=== PATIENT | male | born 1955 | race Caucasian/White ===

== ENCOUNTER 2025-01-30 06:10 | Day surgery (SDC) | payer BC, SELFPAY ==
[2025-01-30] VITALS (9 sets, daily range): BP systolic 107–140; BP diastolic 50–71; BMI 31.0
[2025-01-30] MEDS: NSS 278 ML IV (06:50)
[2025-01-30] MEDS: LOW STRENGTH ASPIRIN 324 MG PO (07:07)
--- NOTE | 2025-01-30 07:33 | ITS.CL.CATH ---
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
Cardiac Catheterization
Procedure Report:
LEFT HEART CATHETERIZATION
Date of Procedure: January 30, 2025
Procedures performed:
1: Coronary angiography
2: Left ventricular hemodynamic assessment
Primary Care Physician: Talia Leo PA-C
Primary [place] Support Worker: Dr. Naveen Medrano
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
intervention. He underwent a treadmill stress test and was unable to walk 3 minutes without severe dyspnea.
ACCESS: The patient was prepped and draped in usual sterile fashion. A 6 Amharic sheath was placed in the right radial artery using the Seldinger over the wire technique.
HEMODYNAMIC FINDINGS (mmHg):
LV(s/d,EDP): 186/9, 29
Ao(s/d,m): 137/61, 75
Mean aortic valve gradient on pullback: 50 mmHg
ANGIOGRAPHIC FINDINGS:
Single-plane Left Ventriculography in [place] Projection: Not done. Echocardiogram performed on December 26 showed normal LV systolic function with severe aortic valvular stenosis with a mean gradient of 40 mmHg and a valve area by the continuity equation
0.85 cm�.
Coronary Angiography:
Dominance: Right
Left Main: Normal
Left Anterior Descending: The left anterior descending artery is a large-caliber vessel that gives rise to 2 large diagonal branches. These vessels are widely patent with only mild luminal irregularities.
Left Circumflex: The left circumflex is a relatively small caliber nondominant system that gives rise to 2 major obtuse marginal branches which are widely patent with no focal obstructive disease.
Right Coronary: The right coronary artery is a medium caliber dominant vessel that gives rise to a medium caliber posterior descending artery and larger posterior left ventricular branch. These vessels have mild luminal regularities with normal
distal flow.
Fluoroscopy Time (min): 6.8
Radiation Dose (mGy): 358
DAP (Gy.cm2): 24
Closure device: None. A TR band was applied for hemostasis at the right wrist.
Complications: None.
ASSESSMENT:
1: Very mild nonobstructive coronary artery disease.
2: Severe aortic valvular stenosis.
CONCLUSIONS and RECOMMENDATIONS:
1: Proceed with TAVR evaluation.
2: Smoking cessation remains most important intervention to reduce his morbidity and mortality from vascular events. Unfortunately he is not interested in quitting.
Lanette Pickett M.D.
Copy to: Talia Leo PA-C
[2025-01-30] MEDS: NSS 1000 IV (08:10)
--- NOTE | 2025-01-30 11:01 | CONSULT.STRU ---
Consultation
-
Date/Time Consultation Requested: 01/30/2025 09
Date/Time Consultation Performed: 01/30/2025929
Requesting Provider: Dr. Popeye Pickett
Performing Provider: BACILIO Espitia
Reason for Consultation: Aortic stenosis/ TAVR evaluation
Patient History
Physicians
Family Physician: Talia Leo
Outpatient Property Maintenance Technician: Naveen Medrano
Primary Property Maintenance Technician: Naveen Medrano
History of Present Illness
Uday Shook is a pleasant 69-year-old man with hyperlipidemia, severe aortic stenosis and mild insufficiency, moderate mitral stenosis, elevated PSA, venous insufficiency, recurrent DVT despite therapeutic INR on warfarin, now on lifelong Xarelto
who presents for cardiac cath today as part of his TAVR evaluation. Most recent echocardiogram confirmed severe aortic stenosis by gradients 64.0/40.1 and SAM 0.85. He does have recently worsened fatigue, but was not complaining of classic symptoms
so Dr. Medrano ordered a treadmill stress test and he was only able to complete 2 minutes on the Nicolas protocol before discontinuing due to severe dyspnea. Today he denies HADDAD and only complains about fatigue. He denies chest pain, palpitations,
orthopnea, PND. He denies claudication symptoms. 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
Reviewed the pathophysiology of aortic stenosis with the patient, his , his daughter and granddaughter. Explained the treatment options of SAVR and TAVR. Explained the TAVR evaluation process including follow up BMP, CT TAVR scan, CT surgery
consult and Heart Team discussion. Provided with script for BMP next week, script and appointment for CT TAVR, Consult appointment with Dr. Rosario and a copy of the TAVR education booklet with contact information. Allowed for and answered questions.
Past Medical History
Past Medical History: Hypercholesterolemia, Valvular Disease (severe , mild AI, mild MR, Mild to moderate mitral stenosis) and Other (tobacco abuse, h/o recurrent DVT, last one 5 years ago. 3 LE DVT and 1 PE)
Past Surgical History
Past Surgical History: Appendectomy
Dental History
Does not receive regular dental care. Aware he will need dental clearance. Will go to [facility].
Family History
Mother: at Age
Father: at Age
Social History
Alcohol: Occasional
Drug: None
Tobacco: Smoker (current 1/2 ppd for past 3 years but prior 1 PPD since age 13)
Personal:
Living: With Spouse
Employment: Employed (works in a [employer] store)
Allergies
Allergy/AdvReac Type Severity Reaction Status Date / Time
erythromycin base Allergy Unknown Unknown Verified 01/30/25 06:30
Home Medications
�Medication �Instructions �Recorded �Confirmed �Type
rivaroxaban 20 mg tablet (Xarelto) 20 mg PO DAILY 01/30/25 01/30/25 History
rosuvastatin 10 mg tablet 10 mg PO DAILY 01/30/25 01/30/25 History
vitamin B complex 1 tab PO DAILY 01/30/25 01/30/25 History
STS%
STS %: 1.24%
Review of Systems
-
History Source: Patient
General: Reports Fatigue
HEENT: Reports No Symptoms
Respiratory: Reports Cough (productive); Denies SOB, HADDAD or PND
Cardiac: Reports No Symptoms; Denies Chest Pain, Palpitations or Edema
Abdomen/GI: Reports No Symptoms; Denies Abdominal Pain or Reflux
: Reports No Symptoms
Musculoskeletal: Reports No Symptoms
Skin: Reports No Symptoms
Neurological: Reports No Symptoms; Denies CVA or TIA
Vascular: Reports No Symptoms; Denies Claudication
Physical Exam
Vital Signs
Temp 97.9 F 01/30/25 07:03
Pulse 60 01/30/25 09:45
Resp Rate 15 01/30/25 09:45
Blood pressure 124/50 01/30/25 09:36
Blood pressure extremity used: Left upper arm 01/30/25 08:06
Position: Lying 01/30/25 08:06
MAP (cuff-Peyton Monitor) 71 01/30/25 09:36
SaO2 96 01/30/25 09:51
Oxygen Mode of Delivery Room air 01/30/25 09:51
Can the patient verbally communicate their pain? Yes 01/30/25 09:51
Actual Weight 92.5 kg 01/30/25 06:51
Body Mass Index (BMI) 31.0 01/30/25 06:51
Labs
01/22/2025 GVH:
H/H: 15.7/48.0
Platelets: [id number]
WBC: 9.0
BUN/Creat: 30/09.37
GFR: 55
Diagnostic Studies
Cardiac Catheterization 01/30/2025:
Coronary Angiography:
Dominance: Right
Left Main: Normal
Left Anterior Descending: The left anterior descending artery is a large-caliber vessel that gives rise to 2 large diagonal branches. These vessels are widely patent with only mild luminal irregularities.
Left Circumflex: The left circumflex is a relatively small caliber nondominant system that gives rise to 2 major obtuse marginal branches which are widely patent with no focal obstructive disease.
Right Coronary: The right coronary artery is a medium caliber dominant vessel that gives rise to a medium caliber posterior descending artery and larger posterior left ventricular branch. These vessels have mild luminal regularities with normal
distal flow.
Fluoroscopy Time (min): 6.8
Radiation Dose (mGy): 358
DAP (Gy.cm2): 24
Closure device: None. A TR band was applied for hemostasis at the right wrist.
Complications: None.
ASSESSMENT:
1: Very mild nonobstructive coronary artery disease.
2: Severe aortic valvular stenosis.
CONCLUSIONS and RECOMMENDATIONS:
1: Proceed with TAVR evaluation.
2: Smoking cessation remains most important intervention to reduce his morbidity and mortality from vascular events. Unfortunately he is not interested in quitting.
Echocardiogram 12/26/2024 ([facility]):
SUMMARY
1. Normal Left ventricular ejection fraction, by visual estimation, is 60 to 65% with normal regional function.
2. Indeterminate LV diastolic function.
3. Normal right ventricular size and systolic function.
4. Normal left atrium by volume index (29.5 mL/m2) and normal right atrium by area (12.7 cm2).
5. Aortic valve is thickened and calcified and tricuspid. Severe aortic valve stenosis. Mild aortic regurgitation. AoV velocity of 4.00 m/s; Peak aortic valve gradient = 64.0 mmHg; Mean gradient = 40.1 mmHg; AoV Area by continuity equation = 0.85
cm2; AoV Dimensionless Index = 0.26.
6. There is thickening of the anterior leaflet of the mitral valve. Moderate mitral annular calcification. Normal MVA by PHT, mean gradient 4 mmHg .Mild mitral valve regurgitation is seen.
7. Right atrial pressure of (3 mmHg), the estimated right ventricular systolic pressure is normal at (29.7 mmHg).
8. Mild to moderate mitral valve stenosis with mean gradient of 4.5 mmHg.
9. Compared to a prior TTE study from 07/24/2024 Findings are similar. Aortic valve and mitral valve gradients are slightly lower.
Left Ventricle:
The left ventricular internal cavity size was normal. There is normal left ventricular systolic function. Indeterminate LV diastolic function. Left ventricular ejection fraction, by visual estimation, is 60 to 65%. No left ventricular hypertrophy.
Right Ventricle:
Normal right ventricular size, wall thickness, and systolic function. The tricuspid regurgitant velocity predicts an estimated right ventricular systolic pressure of 29.7 mmHg.
Left Atrium:
The left atrium is normal by volume index 29.5 mL/m2.
Right Atrium:
Right atrium is normal by area 12.7 cm2.
Inferior vena cava normal in size (<2.1 cm) + greater than 50% variably consistent with normal right atrial pressures (3 mmHg).
Interatrial Septum:
Interatrial and interventricular septa appear intact, with no obvious evidence of intracardiac shunting by spectral or color Doppler.
Aortic Valve:
The aortic valve is thickened and calcified and tricuspid. Doppler findings and restricted movement of the aortic valve cusps are consistent with severe aortic stenosis. The peak aortic valve gradient is 64.0 mmHg. The mean aortic valve gradient is
40.1 mmHg. The peak aortic velocity was obtained from the apical view. There is mild aortic regurgitation.
Mitral Valve:
There is moderate mitral annular calcification. There is thickening of the anterior leaflet of the mitral valve. The mean mitral valve gradient is 4.5 mmHg. The calculated mitral valve area is 3.61 cm�, using a pressure half-time of 61 msec. Mild
mitral valve regurgitation is seen. Mild to moderate mitral valve stenosis.
Tricuspid Valve:
The tricuspid regurgitant velocity is (2.58 m/s), and with an assumed right atrial pressure of (3 mmHg), the right ventricular systolic pressure is normal (29.7 mmHg). Structurally normal tricuspid valve, with normal leaflet excursion.
Pulmonary Valve:
The pulmonic valve is normal in structure with good excursion. There is trace pulmonary valve regurgitation.
Aorta:
The aortic root measures (2.98 cm/ BSA indexed 1.4 cm/m2), Aortic sinus (2.99 cm/ BSA indexed 1.4 cm/m2), Aortic ST junct (2.6 cm/ BSA indexed 1.2 cm/m2), and Asc Aorta (3.19 cm/ BSA indexed 1.5 cm/m2).
Pericardium:
There is no evidence of pericardial effusion.
Comparison To Previous Study:
Compared to a prior transthoracic study from 07/24/2024Findings are similar. Aortic valve and mitral valve gradients are slightly lower. Prior examinations are available and were reviewed for comparison purposes.
Exam
General: Well Developed, Well Nourished, No Apparent Distress and Comfortable
HEENT: Normocephalic, PERRLA and EOMI
Neck: Trachea Midline
Respiratory: Clear; Negative Wheezes, Crackles or Rhonchi
Cardiac: S1/S2, Regular Rhythm and Murmur (Grade II-II/ JUAN MANUEL)
GI: Soft, Non Tender, Non Distended and Normal Bowel Sounds
Rectal: Deferred by Provider
Skin: Warm and Dry
Neuro: AO x 3 and Nonfocal/Grossly Intact
Extremities: Pulses (+2 dp/pt pulses bilateral); Negative Lower Level Edema
Psych: Calm
Assessment / Plan
-
Procedure Type:�Isolated AVR
Perioperative Outcome Estimate %
Operative Mortality 1.24%
Morbidity & Mortality 8.68%
Stroke 0.904%
Renal Failure 1.11%
Reoperation 3.8%
Prolonged Ventilation 3.72%
Deep Sternal Wound Infection 0.07%
Long Hospital Stay (>14 days) 2.4%
Short Hospital Stay (<6 days)* 58.8%
Severe Aortic stenosis:
����������� Continue evaluation for aortic stenosis as outpatient
����������� BMP 02/05/2025
����������� CT TAVR scan 02/19/2025 at
����������� CT surgery consult with Dr. Rosario� 02/25/2025
����������� Dental Clearance � needs a dentist, will probably go to [facility]
����������� Heart team discussion at [facility]
Data Reviewed
-
EKG: Report Reviewed by me
Morning Show Newscast Producer: Report Reviewed by me, Discussed with Physician, Discussed with Patient and Discussed with Family
Echo: Report Reviewed by me, Discussed with Physician, Discussed with Patient and Discussed with Family
Labs: Labs Reviewed by me
Old Records: Reviewed (cardiology consult notes, stress test)
Total Time Spent with Patient (in minutes): 35
== END 2025-01-30 11:10 | disposition home or self-care (01) ==
LOC: CATH 06:10
PROVIDERS: ATTENDING PHYSICIAN Internal Medicine Interventional Cardiology; OTHER PHYSICIAN Internal Medicine; PRIMARYCARE PHYSICIAN Physician Assistant
DX: I25.10 Atherosclerotic heart disease of native coronary artery without angina pectoris (principal); I08.3 Combined rheumatic disorders of mitral, aortic and tricuspid valves; Z79.01 Long term (current) use of anticoagulants; Z86.718 Personal history of other venous thrombosis and embolism; E78.00 Pure hypercholesterolemia, unspecified; F17.210 Nicotine dependence, cigarettes, uncomplicated; Z88.1 Allergy status to other antibiotic agents; Z79.899 Other long term (current) drug therapy; Z90.49 Acquired absence of other specified parts of digestive tract
CPT/HCPCS: 93458; C1769; C1894; Q9967

== ENCOUNTER → 2025-02-19 09:23 | Outpatient (REF) | payer OTHER, SELFPAY | LOC: RAD 09:23 | PROVIDERS: ATTENDING PHYSICIAN Nurse Practitioner Adult Health; FAMILY PHYSICIAN Physician Assistant | DX: I35.0 Nonrheumatic aortic (valve) stenosis (principal) | CPT/HCPCS: 74174; 75572; Q9967 ==

== ENCOUNTER 2025-04-11 09:04 | Inpatient (IN) | payer OTHER, SELFPAY ==
--- NOTE | 2025-04-01 16:49 | HPS.HSE ---
Family Physician
-
Family Physician: Talia Leo
Chief Complaint
-
Fatigue
PreTAVR evaluation
History of Present Illness
Uday Shook is a pleasant 69-year-old man with hyperlipidemia, severe aortic stenosis and mild insufficiency, moderate mitral stenosis, elevated PSA, venous insufficiency, recurrent DVT despite therapeutic INR on warfarin, now on lifelong Xarelto..
Most recent echocardiogram confirmed severe aortic stenosis by gradients 64.0/40.1 and SAM 0.85. He does have recently worsened fatigue, but was not complaining of classic symptoms so Dr. Medrano ordered a treadmill stress test and he was only
able to complete 2 minutes on the Nicolas protocol before discontinuing due to severe dyspnea. Today he denies HADDAD and only complains about fatigue. He denies chest pain, palpitations, orthopnea, PND. He denies claudication symptoms. 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 Reviewed the pathophysiology of aortic stenosis with the patient.
Assessed patient in preadmission testing and confirmed medication list. Last dose Xarelto will by Tuesday (04/07), he will take 324 mg aspirin on Tuesday (04/08), 81 mg aspirin Tuesday (04/09) Tuesday (04/10) and (04/11). He will arrive to the
[facility] atrium at 0930. Reviewed the risks of the procedure as discussed in consult with Dr. Rosario including PPM, stroke, and vascular complications. Allowed for and answered questions to the best of my ability.
Medical History
Past Medical History
Past Medical History: Reports Valvular Disease (aortic stenosis, HLD, tobacco abuse, venous insufficiency, CKD2, PE, bilateral vericose veins, arthritis)
Past Surgical History: Reports Appendectomy
Social History
Tobacco: Smoker
Alcohol: Occasional
Drug: None
Personal:
Living: With Family
Employment: Employed
Family History
Family History: Cancer and Diabetes
Allergies / Home Medications
Allergies reflects when Allergies were last updated in [employer].
erythromycin
Home Medications with original date entered in [employer]
Rosuvastatin Calcium 10 MG Capsule Sprinkle 1 tablet Orally Once a day
Vitamin B Complex - Tablet as directed Orally
Xarelto(Rivaroxaban) 20 MG Tablet 1 tablet with food Orally Once a day
Allergy/Medication List:
erythromycin
Review of Systems
-
History Source: Patient
A 12 point ROS was completed and negative except as noted: Yes
Constitutional: Reports Fatigue
Respiratory: Reports Other (HADDAD)
Physical Exam
Physical Exam
General: Well Developed, Well Nourished, No Apparent Distress and Comfortable
HEENT: NormoCephalic
Respiratory: Clear
Cardiac: Murmur (III/ JUAN MANUEL)
Breast: Deferred by me
Rectal: Deferred by Provider
Genito-urinary: Deferred by me
Musculoskeletal: No Edema
Skin: Warm and Dry
Neuro: Awake, Alert, Oriented and AO x 3
Psych: Calm
Impression/Plan
-
IMPRESSION/PLAN:
Aortic stenosis
TF TAVR planned for 04/11/2025 utilizing a 26mm S3
last dose Xarelto Tuesday (04/08)
Aspirin 324 mg Tuesday (04/09)
Aspirin 81 mg Tuesday (04/10) and (04/11)
d/c aspirin when Xarelto resumed
POD#1/#30 Echocardiogram
cadiac rehab consult
Labs
-
Labs:
WBC 8.1 10^3/uL (4.8-10.8) 04/02/25 08:28
RBC 4.69 10^6/uL (4.70-6.10) L 04/02/25 08:28
Hgb 14.8 g/dL (13.0-18.0) 04/02/25 08:28
Hct 43.8 % (39.0-52.0) 04/02/25 08:
Plt Count 127 10^3/uL (130-400) L 04/02/25 08:
Sodium 139 mmol/L (135-145) 04/02/25 08:
Potassium 4.5 mmol/L (3.5-5.1) 04/02/25 08:
Chloride 106 mmol/L (98-107) 04/02/25 08:
Carbon Dioxide 26 mmol/L (22-30) 04/02/25 08:
BUN 16 mg/dl (9-20) 04/02/25 08:
Creatinine 1.2 mg/dL (0.7-1.3) 04/02/25 08:
eGFR > 60.00 04/02/25 08:28
Glucose 109 mg/dl (70-99) H 04/02/25 08:28
Calcium 9.4 mg/dl (8.4-10.2) 04/02/25 08:
Xal-J-Qbfrqrlavpr Pept 307 pg/ml 04/02/25 08:28
Albumin 4.6 g/dl (3.5-5.0) 04/02/25 08:28
[2025-04-02 08:19] VITALS: BMI 30.4
[2025-04-02 09:02] LABS: Hematocrit 43.8 % (39.0-52.0); Hemoglobin 14.8 g/dL (13.0-18.0); Mean Corp Hgb Conc. 33.8 g/dL (33.0-37.0); Mean Corpuscular Volume 93.4 fL (80.0-94.0); Nucleated Red Blood Cells % 0 % (-); Platelet Count 127 10^3/uL (130-400); Red Cell Dist. Width 12.4 % (11.5-14.5)
[2025-04-02 09:06] LABS: INR 1.41; PT 17.5 Sec (11.4-14.6)
[2025-04-02 09:16] LABS: ALT (SGPT) 17 U/L (0-50); AST (SGOT) 20 U/L (17-59); Albumin 4.6 g/dl (3.5-5.0); Alkaline Phosphatase 49 U/L (38-126); Blood Urea Nitrogen 16 mg/dl (9-20); Calcium 9.4 mg/dl (8.4-10.2); Carbon Dioxide 26 mmol/L (22-30); Chloride 106 mmol/L (98-107); Estimated Creatinine Clearance 62 ml/min; Glucose 109 mg/dl (70-99); Potassium 4.5 mmol/L (3.5-5.1); Sodium 139 mmol/L (135-145); Total Protein 7.4 g/dl (6.3-8.2); eGFR > 60.00
[2025-04-02 09:57] LABS: Urine Character Clear (Clear)
[2025-04-02 10:03] LABS: Glycohemoglobin (HgbA1c) 5.9 % (4.0-5.6)
[2025-04-02 11:54] LABS: Urine Squamous Cell 16-20 /LPF (Few)
--- NOTE | 2025-04-02 12:08 | CM ---
spoke to pt in PAT's , we discussed preop TAVR teaching including lifting and driving restrictions. he is prev indep, lives with his in a 2 story home with 2 steps to enter. he denies any dme's or dc planning needs. he has the TAVR educ book
and soap. he is agreeable toa f/u visit from the ct transitional care nurse after dc. plan is for TAVR 04/11, cm role explained and all questions answered.
[2025-04-11] VITALS (16 sets, daily range): BP systolic 108–142; BP diastolic 57–85; BMI 30.4
--- NOTE | 2025-04-11 11:01 | W.CVOR.SURPR ---
CVOR Surgeon Immed Pre Op
-
I have examined this patient prior to performance of the scheduled procedure.
The patient's condition is unchanged from the time of the dictated/written History and
Physical and the patient is able to undergo the scheduled procedure.
TF TAVR
Full Rescue
[2025-04-11] MEDS: ANCEF 10 IV ×2 (11:45)
[2025-04-11 12:44] LABS: ACT-LR - POC 260 Seconds (116-155)
--- NOTE | 2025-04-11 12:51 | W.PN.CT.SURG ---
CT Surgery Operative Note
-
OPERATIVE REPORT
Preoperative Diagnosis: Severe aortic valve stenosis, symptomatic
Postoperative Diagnosis: Same
Procedure(s) Performed: Right trans femoral TAVR with a 23 mm + 1cc Gilliam TAVR valve
Date of Procedure: 04/11/2025
Comorbidities:
1. Severe aortic stenosis, symptomatic
2. Hypertension
3. Hyperlipidemia
4. Recurrent DVTs and PEs despite anticoagulation
5. CKD 2
6. Acute on chronic congestive diastolic systolic heart failure with LVEDP of 27
Cardiac Surgeon: Lefty Rosario MD, MS
Rn Internal Medicine: Kunal Powell MD
Anesthesia: Conscious Sedation and Local Analgesia
EBL: 100cc
Products: none
Implant: 23 mm +1 cc Gilliam Resilia TAVR valve, SN: [id number]
Indication(s) for Procedures: 69-year-old male with symptomatic severe aortic stenosis. CT-TAVR protocol revealed acceptable anatomy for TAVR access and implantation.
Start time: 1208hrs
Deployment time: 1236hrs
End time: 1246hrs
Radiation Dose (mGy): 241
DAP (cm2.Gy): 20.3
Fluoroscopy time (minutes): 6.5
Contrast volume (ml): 92
TAVR gradient (mmHg): 5mmHg
Heparin Dose: 6500+1000units
Protamine Dose: 30mg
Final Valve Positionin/10
Findings: Preoperative LVEF was 60% and was 60% following TAVR without inotropic support. Function was overall normal without regional wall motion abnormalities or dyskinesia. The aortic valve was well seated without detectable PVL and mean gradient
across the new valve was 5-6mmHg. After deploying the valve, there was no requirement for any pacing and returned to sinus while on the brine room laborer table. The temporary pacing wire was removed there was successful placement of 23 mm +1 cc TAVR valve
without acute complications. An LVEDP was measured pre-TAVR deployment evaluate 27 mmHg indicating acute on chronic heart failure with volume overload. Lasix to be given in the CVICU.
Access:
1. Device -right common femoral artery, perclose x 2
2. Pigtail -left common femoral artery [+ 6Fr angioseal]
3. Transvenous Pacer -left common femoral vein
Description of Procedure: The patient was taken to the brine room laborer. Their identity and procedure to be performed were verified and they were positioned supine on the brine room laborer table. Induction via conscious sedation. The patient was then prepped and
draped from chin to thigh in a sterile fashion. A preoperative time-out was performed with all members of the team present. Arterial and venous access was performed using fluoroscopy and ultrasound guidance with micropuncture and Seldinger
technique. Two perclose devices were used on the device side followed by access to the aorta with a stiff wire to facilitate E-sheath placement. Heparin was given. A stiff straight wire and AL-1 catheter was used to cross the aortic valve. An LVEDP
was then measured here. The stiff wire was exchanged for an extra stiff coiled tip wire. The valve was prepped and mounted on to the device carrier. An ACT of >250 was achieved. We verified x 3 that the valve was mounted in the correct orientation
with the skirt of the valve directed toward the tip of the device carrier. We advanced the device into the descending thoracic aorta where the valve was them mounted onto the balloon under fluoroscopy. The device was flexed and advanced over the
arch into the root and positioned across the aortic valve. Contrast fluoroscopy was used to visualize the prosthesis across the valve and to guide positioning. A pigtail catheter in the RCC as used as a guide. We aimed to have the bottom of the
device marker at the annular hinge point. The device sheath was pulled back. We performed a quick pre-deployment time out. The pacer was turned on and had capture. Blood pressure fell accordingly, angiography was done to verify the intended final
placement and the valve was deployed with 5 seconds of rapid pacing to nominal volume. The balloon was deflated and the pacer was turned off. We had recovery of vitals. The device carrier was unflexed and positioned back in the descending thoracic
aorta. A transthoracic echocardiogram was performed. The device was removed from the E-Sheath maintaining wire access followed by removal of the E-sheath as we cinched down the perclose devices. There was acceptable hemostasis. The pigtail was
withdrawn into the descending/abdominal and completion aortogram with runoff run-off angiography was performed. There was no stenosis or dissection of bilateral iliofemoral systems. There was acceptable hemostasis of bilateral groins and manual
pressure was held following wire removal. Low dose protamine was administered after checking another ACT.
All instrument, sponge, and needle counts were confirmed to be correct x 2 at the end of the operation. The patient was transferred to the cardiac intensive care unit in stable condition.
I, Dr. Lefty Rosario, was present, scrubbed for, and performed all critical elements of this procedure.
Lefty Rosario MD
Cardiothoracic Surgeon
[facility]
This operative dictation was created using the Joox dictation system. Please excuse any grammatical, typographical, or 'sound alike' errors
[2025-04-11 12:53] LABS: ACT-LR - POC 392 Seconds (116-155)
[2025-04-11] MEDS: LASIX 40 MG IV (14:10)
--- NOTE | 2025-04-11 14:27 | ITS.CL.TAVR ---
Head Of Training And Development - TAVR Report
TAVR PRocedure
Procedure Report:
TRANSCATHETER AORTIC VALVE REPLACEMENT
Date of Procedure: April 11, 2025
Referring: Dr. Popeye Pickett
Operators: Drs. Kunal Powell and Lefty Rosario
PROCEDURE PERFORMED:
1. Ultrasound guidance was utilized to gain access in the left common femoral artery, left common femoral vein, and right common femoral artery. Images were captured during access and stored as part of the patient's permanent medical record.
2. Successful placement of 23 mm Gilliam TIBURCIO 3 ULTRA-RESILIA aortic valve via right common femoral approach.
PREPROCEDURE NYHA CLASS: 3
DESCRIPTION OF PROCEDURE: The patient was referred for assessment of severe symptomatic aortic stenosis and following a comprehensive evaluation it was felt that transcatheter aortic valve replacement (TAVR) would be the most appropriate treatment.
Informed consent was obtained prior to the procedure. A 'time-out' was called and the procedural plan was verbally confirmed by anesthesia, surgery, perfusion, and cardiac cath rn staff.
Arterial was obtained in the left common femoral artery using ultrasound guidance and micropuncture technique. A 6 Fr sheath was inserted. Ultrasound guidance was then utilized to gain access into the left common femoral vein and a 6 Fr sheath was
inserted. Attention was then turned to the right common femoral artery. Ultrasound guidance was utilized and access was obtained in the right common femoral artery using ultrasound guidance. Angiography through the right and left common femoral
arteriotomy sites appeared appropriate for preclosure with 2 Perclose devices. A 0.035 inch J-wire was then reinserted through the micropuncture sheath and a 6 Fr sheath was then inserted.
A transvenous pacemaker wire was then advanced from the left common femoral vein to the right ventricular apex where excellent pacing thresholds were obtained.
An angled pigtail catheter was then advanced through the left common femoral sheath and positioned in the proximal ascending thoracic aorta / right coronary cusp. Angiography was performed to define a coplanar angle facilitating positioning and
delivery of the TAVR device. YAKUT 19 / TANK CAR CLEANER 5 appear to be a reasonable coplanar angle.
Pre-closure of the right femoral arteriotomy was then performed using 2 Perclose devices and was followed by placement of an 8 Fr arterial sheath.
An AL-1 catheter was then advanced to the proximal descending thoracic aorta over 0.035' J-tipped guidewire. An Amplatz Extra-Stiff wire was then advanced through the AL-1 catheter to the proximal descending thoracic aorta. The AL-1 catheter was
removed and the supportive wire was utilized to facilitate delivery of the Gilliam eSheath and dilator. Heparin, 7500 units, was administered and the ACT was monitored throughout the procedure.
The AL-1 catheter was then readvanced through the Gilliam eSheath. The 0.035' stiff wire was allowed to drift across the aortic arch and the AL1 was positioned just above the aortic valve. The stenotic leaflets were probed with a Soft-tip Straight
wire. The aortic leaflets were crossed and the AL-1 catheter followed the Soft-tip Straight wire to the mid left ventricle. The wire was removed. Left ventricular end-diastolic pressures was measured at 27 mmHg.
An Amplatz Extra-Stiff wire with a generous curved tip was then advanced to the mid left ventricle. The AL-1 catheter was removed and the Amplatz wire was left in place in order to facilitate delivery of the Gilliam delivery system. A 23 mm
Gilliam TIBURCIO 3 ULTRA-RESILIA valve was brought to the table and the orientation of the valve on the balloon delivery system was confirmed by all operators. The TIBURCIO 3 ULTRA-RESILIA valve was advanced through the eSheath and into the proximal
descending thoracic aorta. The TIBURCIO valve was centered on the delivery balloon and the entire system was retroflexed as across the aortic arch in an YAKUT projection. The TIBURCIO 3 ULTRA-RESILIA delivery system was then advanced across the stenotic
aortic leaflets. The pusher was retracted. Angiography confirmed appropriate positioning of the valve and rapid pacing was undertaken. The 23 mm TIBURCIO 3 ULTRA-RESILIA valve was deployed during rapid pacing. Valve deployment was uneventful.
Aortography following valve deployment suggested trace aortic insufficiency while the wire was still across the valve in the left ventricle.
The post valve deployment transthoracic echocardiogram was notable for a mean gradient of 6 mmHg.
The Gilliam valve delivery system was removed. The Gilliam eSheath was removed and the Perclose knots were advanced to the arteriotomy site with excellent hemostasis. Angiography after the Perclose knots were advanced to the arteriotomy site and
demonstrated good distal runoff.
A 6 Turkmen Angio-Seal was then utilized to obtain hemostasis in the right common femoral artery. The temporary pacemaker and 6 Fr sheath were removed and manual pressure was held over the 6 Turkmen femoral venous access.
Protamine was administered to reverse the intravenous anticoagulant.
Fluoro Time: 6.5 min, Dose: 241 mGy, DAP : 20.3 Gy.cm2
CONCLUSIONS:
1. Severe symptomatic aortic stenosis. Successful deployment of a 23 mm TIBURCIO 3 ULTRA-RESILIA valve with trace aortic insufficiency
2. The right arteriotomy was closed with 2 Perclose devices and successful closure of the left arteriotomy site with a 6 Fr Angio-Seal
Copy to: Dr. Popeye Pickett
--- NOTE | 2025-04-11 15:19 | CM ---
Reviewed chart. Mr. Shook is in the operating room today. Prior to admission he resides with his spouse in a [place] with two steps to enter. Prior to admission he was independent with ambulation and adls. He does not have any DME in the
home. He has a prescription plan and uses [facility]. Medical work-up in progress. The discharge plan is to return home with his spouse and a home visit by the Transitional Care Nurse when medically stable.
[2025-04-11] MEDS: ANCEF 5 IV (20:09)
[2025-04-11] MEDS: FLOMAX 0.4 MG PO (22:15)
--- NOTE | 2025-04-12 02:18 | W.PN.CT ---
Today's Communication / Plan
-
pod#1
- check CXR, TTE, ECG
- discuss need for rhythm monitor with cardiology
- Flomax started for acute urinary retention
- if stable, plan for DC today on home medication regimen with Xarelto monotherapy for anticoagulation
Assessment / Plan
-
Nonrheumatic severe aortic stenosis s/p Right trans femoral TAVR #23 mm + 1cc Gilliam TAVR valve by Drs. Lefty Rosario/Kunal Powell-pod#1
1. Hypertension
2. Hyperlipidemia
3. Recurrent DVTs and PEs despite anticoagulation
4. CKD 2
5. Acute on chronic congestive diastolic systolic heart failure with LVEDP of 27
6. Class I obesity (BMI 30.4)
7. Thrombocytopenia
- Acute postop left bundle branch block
- Acute postop urinary retention s/p straight cath x 2
Discussed patient care with: Cardiology, Nursing and Respiratory Therapy
Subjective
Procedure
Right trans femoral TAVR #23 mm + 1cc Gilliam TAVR valve by Drs. Lefty Rosario/Kunal Powell-pod#1
- only c/o urinary hesitancy/frequency
-
Date of Service: April 12, 2025
Objective Data
-
PT 17.5 Sec (11.4-14.6) H 04/02/25 08:28
INR 1.41 04/02/25 08:28
Vital Signs
Vital Signs
Temp Pulse Resp BP Pulse Ox
98.8 F 74 16 140/75 97
04/11/25 22:17 04/11/25 22:17 04/11/25 22:17 04/11/25 22:17 04/11/25 22:17
CT Intake/Output/Weight
04/11/25 04/11/25 04/12/25
06:59 18:59 06:59
Intake Total 1920 / 1920
Output Total 2149
Balance -230 / -230
SaO2: 97
Physical Exam
-
General: AOx3
Cardiovascular: Regular rate & rhythm
Respiratory: Clear
Extremities: No Edema and Other (B/L groin sites intact w/o bleeding/hematoma)
Data Reviewed
-
Lab Results: Results Reviewed
Medications: Active Meds Reviewed
Chest X-Ray: Report Reviewed and Image Reviewed
ECG: Report Reviewed and Image Reviewed
--- NOTE | 2025-04-12 02:36 | PTCARENOTE ---
Rec'd pt at change of shift. Pt AAO*3, VSS, and SR with LBBB. Bilateral groin sites CDI. Pt denies any pain or discomfort. Now resting with call gray in reach. See MAR and flowchart for full pt care and assessment.
[2025-04-12 04:08] VITALS: BP 134/68
[2025-04-12 04:13] VITALS: BP 134/68
[2025-04-12 05:06] LABS: Hematocrit 44.0 % (39.0-52.0); Hemoglobin 15.1 g/dL (13.0-18.0); Mean Corp Hgb Conc. 34.3 g/dL (33.0-37.0); Mean Corpuscular Volume 91.9 fL (80.0-94.0); Platelet Count 108 10^3/uL (130-400); Red Cell Dist. Width 12.7 % (11.5-14.5)
[2025-04-12 05:33] LABS: Blood Urea Nitrogen 15 mg/dl (9-20); Calcium 8.8 mg/dl (8.4-10.2); Carbon Dioxide 23 mmol/L (22-30); Chloride 105 mmol/L (98-107); Estimated Creatinine Clearance 67 ml/min; Glucose 109 mg/dl (70-99); Potassium 4.3 mmol/L (3.5-5.1); Sodium 136 mmol/L (135-145); eGFR > 60.00
[2025-04-12 05:46] VITALS: BMI 30.2
--- NOTE | 2025-04-12 07:04 | W.PN.ANS.POP ---
Anesthesia Post Operative
- Anesthesia Post Op Note
Vital Signs Stable-See Nursing Note: Yes
Airway Patent: Yes
Adequate Pain Control: Yes
Change in Mental Status: No
Current Postoperative Nausea & Vomiting: No
Anesthesia Complications: No
General Anesthetic Recall: No
Unplanned Admission: No
Post Op Hydration Adequate: Yes
- -
Pt awake and alert, no anesthesia related c/o at time of post op visit.
--- NOTE | 2025-04-12 07:21 | PTCARENOTE ---
Bladder scanned pt for 660mL's. Ct BACILIO Richardson made aware. Rec'd order for flowmax and straight cath. See MAR and flowsheet for full pt care and assessment.
[2025-04-12 08:11] VITALS: BP 141/67
--- NOTE | 2025-04-12 08:41 | W.PN.CARDCBS ---
Today's Communication / Plan
-
RECOMMENDATION:
- Await echo
- Planned RhythmStar monitor
- Eventually will followup with Dr. Pickett
Impression / Plan
-
IMPRESSION:
-Severe symptomatic aortic stenosis s/p TAVR
-Transient LBBB post procedure
-Recurring DVT's and Hx of PE on Xarelto
-CKD2
-Venous insufficiency
-Hyperlipidemia
RECOMMENDATIONS:
-Arteriotomy sites look well
-Await repeat echocardiogram post TAVR to reassess AV
-Labs stable back no rivaroxaban
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
Subjective
Date of Service: April 12, 2025
Feels well and is without complaints
Objective
Labs:
04/12/25 04:44
04/12/25 04:44
Labs
Hgb 15.1 g/dL (13.0-18.0) 04/12/25 04:44
Hct 44.0 % (39.0-52.0) 04/12/25 04:44
Plt Count 108 10^3/uL (130-400) L 04/12/25 04:44
PT 17.5 Sec (11.4-14.6) H 04/02/25 08:28
INR 1.41 04/02/25 08:28
Sodium 136 mmol/L (135-145) 04/12/25 04:44
Potassium 4.3 mmol/L (3.5-5.1) 04/12/25 04:44
BUN 15 mg/dl (9-20) 04/12/25 04:44
Creatinine 1.1 mg/dL (0.7-1.3) 04/12/25 04:44
Glucose 109 mg/dl (70-99) H 04/12/25 04:44
Vital Signs and I&O:
Vital Signs
Temp Pulse Resp BP Pulse Ox
98.8 F 95 20 134/68 97
04/12/25 08:12 04/12/25 05:00 04/12/25 08:12 04/12/25 04:13 04/12/25 08:12
Vital Signs
Temp Pulse Resp BP Pulse Ox
98.8 F 95 20 134/68 97
04/12/25 08:12 04/12/25 05:00 04/12/25 08:12 04/12/25 04:13 04/12/25 08:12
Intake & Output
04/09/25 04/10/25 04/11/25 04/12/25
23:59 23:59 23:59 23:59
Intake Total 1920 / 1920 240 / 240
Output Total 2810 / 2810 400 / 400
Balance -890 / -890 -160 / -160
Physical Exam:
GEN: AAO x 3. No acute distress
HEENT: NC/AT, sclera are anicteric
NECK: Supple. Normal JVP
LUNGS: Clear to bases bilaterally. No wheezing or rhonchi
CV: Regular rate and rhythm. Normal S1/S2. No S3, No S4. Murmur: II/ USB
ABD : Soft, NT, ND, No HSM. Bowel sounds are present.
EXT: No CCE. Right and left femoral arteriotomy sites look well.
NEURO: No focal neurologic deficits
--- NOTE | 2025-04-12 10:19 | CM ---
Reviewed chart. Met with Mr. Shook to review discharge plans. He states he is feeling well. He states he has be ambulating in the room. He states prior to admission he resides with his spouse in a [place] [address] [place] with one step to enter from the front
and two steps from the side door. He states prior to admission he was independent with ambulation and adls. 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 He states prior to admission he was independent with ambulation and adls. He states he
does not have any DME in the home. He states he has a prescription plan and uses [facility]. He states his spouse will be home to assist in his care if needed. We reviewed a home visit by the Transitional Care Nurse. He is agreeable to a home
visit. Medical work-up in progress. The discharge plan is to return home with his spouse and a home visit by the Transitional Care Nurse when medically stable.
[2025-04-12] MEDS: FLOMAX 0.4 MG PO (10:25)
[2025-04-12] MEDS: B COMPLEX w/VITAMIN C 1 CAPLET PO (10:25)
[2025-04-12] MEDS: CRESTOR 10 MG PO (10:25)
--- NOTE | 2025-04-12 11:32 | W.DCSUMMARY ---
Discharge Summary
Discharge Data
Date of Admission: 04/11/25
Date of Discharge: 04/12/25
-
Pending Results: No
Hospital Course
Primary care physician: Talia Leo
Outpatient financial economist: Naveen Medrano
Inpatient consultants: SHAN
Procedures:
1. 04/11/25 Right Transfemoral TAVR #23 Gilliam Resilia
Primary Diagnosis:
1. Severe aortic stenosis
2. Acute on chronic congestive diastolic systolic heart failure with LVEDP of 27
Secondary Diagnoses:
1. Hypertension
2. Hyperlipidemia
3. Recurrent DVTs and PEs despite anticoagulation
4. CKD 2
5. Class I obesity (BMI 30.4)
6. Thrombocytopenia
7. postop LBBB, resolved
8. acute urinary retention postop s/p straight cath x2, resolved
HPI: Patient is a 69-year-old male with known progressive aortic stenosis. Most recent echo demonstrates peak and mean gradients of 60/40 mmHg respectively, aortic valve area 0.85 cm� with preserved EF at 60 to 65%. Left heart catheterization
demonstrated mild nonobstructive coronary disease, he was therefore referred for TAVR.
Hospital course: Patient was electively admitted on 04/11/2025 where he underwent an uncomplicated right transfemoral TAVR by Drs. Rosario and Sherry. Postop EKG demonstrated new left bundle branch block, but he did not have any significant
bradycardia or pauses. He was given IV Lasix for acute heart failure and elevated LVEDP, patient required straight cath x 2 for acute urinary retention. On postop day 1 patient remains hemodynamically stable. Morning EKG demonstrates normal sinus
without left bundle branch block. Decision was made to place patient on a rhythm star monitor prior to discharge to monitor him for the next 2 weeks.
Home medication changes: No home med changes
Discharge Plan
-
Patient Disposition: Home (Routine Discharge)
Discharge Diagnosis/Procedures: R TF TAVR #23mm Gilliam (04/11/25)
Condition: Good
Diet: Low Cholesterol and Low Sodium
Activity: No restrictions and No strenuous activity
Driving Restrictions: As prior to admission
Bathing Restrictions: OK to Shower
Others Tests: The office will contact you in four weeks to make an appointment with your doctor and for a follow up appointment ECHO.
Other Services: Cardiac Rehab
Specialty Instructions: Weigh Daily- Call MD for wt gain/loss 3 lbs overnight/5 lbs in 1 week
Referrals:
CT Transitional Care Nurse [Outside] - in two to three days
Referral Note:
The Cardiothoracic Transitional Care Nurse will call you to set up a visit in 1-2 days.
Talia Leo PA [Family Provider] - in four to six weeks
Referral Note: Please make an appointment in four to six weeks.
Lanette Pickett MD [Active, Cardiology]
Referral Note: The office will contact you in four weeks to make an appointment with your doctor and for a follow up appointment ECHO.
Prescriptions:
Continued
rosuvastatin 10 mg Tablet
10 mg PO DAILY
Xarelto 20 mg Tablet
20 mg PO HS
vitamin B complex Tablet
1 tab PO DAILY
Discharge Orders:
Discharge Patient (As Directed); Ordered 04/12/25
Ordered By: Talia Lopes
Care Plan Goals
Care Plan Goals:
Problem: Readiness for enhanced knowledge related to diagnosis and treatment plan
Goal: Understand your diagnosis and treatment plan needs, including medications if applicable.
Instructions: Know your diagnosis, underlying causes and treatment plan options, including medications if applicable. Consult with your health care team to learn about your diagnosis and treatment plan, including medications if applicable.
Discharge Date and Time
Discharge Date/Time: 04/12/25 13:20
Print Language: [place] CITIZEN
[2025-04-12 12:19] VITALS: BP 126/67
--- NOTE | 2025-04-12 13:30 | PTCARENOTE ---
Pt's IV line & panel monitor D/C'd. D/C instructions discussed w/pt & spouse. Rythmstar monitor discussed & placed on pt as ordered. Pt left via wheelchair w/pt's son providing transportation for pt & his spouse.
== END 2025-04-12 13:20 | disposition home or self-care (01) | DRG 266 ==
LOC: IVU 09:04
PROVIDERS: ADMITTING PHYSICIAN Thoracic Surgery (Cardiothoracic Vascular Surgery); FAMILY PHYSICIAN Physician Assistant; OTHER PHYSICIAN Internal Medicine Interventional Cardiology
PROC: 02RF38Z Replacement of Aortic Valve with Zooplastic Tissue, Percutaneous Approach (ICD-10-PCS; 2025-04-11)
DX: I35.0 Nonrheumatic aortic (valve) stenosis (principal); I50.43 Acute on chronic combined systolic (congestive) and diastolic (congestive) heart failure; I13.0 Hypertensive heart and chronic kidney disease with heart failure and stage 1 through stage 4 chronic kidney disease, or unspecified chronic kidney disease; N18.2 Chronic kidney disease, stage 2 (mild); E78.5 Hyperlipidemia, unspecified; I87.2 Venous insufficiency (chronic) (peripheral); D69.6 Thrombocytopenia, unspecified; I44.7 Left bundle-branch block, unspecified; R33.8 Other retention of urine; E66.811 Obesity, class 1; Z68.30 Body mass index [BMI] 30.0-30.9, adult; F17.200 Nicotine dependence, unspecified, uncomplicated; Z86.718 Personal history of other venous thrombosis and embolism; Z86.711 Personal history of pulmonary embolism; Z79.01 Long term (current) use of anticoagulants
CPT/HCPCS: 33361; 36415; 71045; 71046; 80048; 80053; 81003; 81015; 82248; 83036; 83880; 85025; 85027; 85347; 85610; 86850; 86900; 86901; 87070; 93005; 93308; 93321; 93325; C1760; C1769; C1894; Q9967